=== PATIENT | female | born 1980 ===

== ENCOUNTER 2018-04-30 17:05 | Emergency (ER) | payer OTHER ==
[2018-04-30 17:35] VITALS: BP 119/81; PULSE 72; RESP 14; TEMP 98.2; O2SAT 100
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
--- NOTE | 2018-05-01 08:23 | RAD ---
PROCEDURE: Right Hand Radiographs. HISTORY: Right wrist pain. COMPARISON: April 30, 2018. Right wrist reported separately FINDINGS: BONES: Normal. No fracture. JOINTS: Normal. No osteoarthritic changes. SOFT TISSUES: Normal. OTHER FINDINGS: None. IMPRESSION: Normal right hand radiographs.
--- NOTE | 2018-05-01 08:24 | RAD ---
PROCEDURE: Right Wrist Radiographs. HISTORY: r/o fx COMPARISON: April 30, 2018. Right hand reported separately FINDINGS: BONES: Normal. No fracture. JOINTS: Normal. No dislocation. SOFT TISSUES: Normal. OTHER FINDINGS: None. IMPRESSION: Normal right wrist radiographs.
== END 2018-04-30 19:30 | disposition home or self-care (01) ==
LOC: H.ER 17:05
DX: M25.531 Pain in right wrist (principal)